=== PATIENT | male | born 1960 | race Caucasian/White ===

== ENCOUNTER → 2016-12-03 | Outpatient (CLI) | payer BC ==
--- NOTE | 2016-12-03 16:51 | MR ---
EXAMINATION TYPE: MR shoulder RT wo con DATE OF EXAM: 12/03/2016 3:14 PM COMPARISON: Outside right shoulder x-ray November 19, 2016. HISTORY: Pain Right shoulder, Limited ROM for 1 - 2 years TECHNIQUE: Multiplanar, multisequence imaging of the right shoulder is performed without contrast. FINDINGS: Rotator Cuff: The supraspinatus and infraspinatus tendons are both intact to humeral head attachment. There is small focal tear involving the anterior fibers of supraspinatus tendon at articular surface measuring 5 mm transversely on paracoronal image 10. Some increased signal in distal fibers is prese nt of supraspinatus and infraspinatus tendons. No full-thickness retracted tears are identified. Rota tor cuff muscle bulk is preserved. Increased signal in subscapularis tendon is present. Acromioclavicular Joint: Widening of acromioclavicular joint is present. No significant spurring is s een. Glenohumeral Joint: There is moderate glenohumeral joint effusion. There is joint space loss with pro minent spur inferior medial humeral head. Labrum: The superior labrum shows some increased signal with retraction from glenoid seen [facility] [place] image 11, degenerative tear is suspected. Biceps Tendon: The long head of biceps is in normal location within bicipital groove. Marked surround ing fluid signal is seen are prominent than expected for joint effusion. Bone marrow signal: There is reactive cystic change involving inferior medial glenoid with well-defin ed ossific fragmentation inferiorly. There is additional subchondral cystic change in the superior gl enoid on paracoronal image 10 anteriorly. Other: No additional significant abnormality is appreciated. IMPRESSION: 1. Moderate to severe glenohumeral joint arthropathy as detailed above. 2. Tendinosis distal supraspinatus and infraspinatus tendons, focal articular surface partial tear of supraspinatus tendon is also seen. 3. Probable bicipital tenosynovitis. 4. Degenerative tear labrum felt present.
== END | disposition home or self-care (01) ==
LOC: RADMRIMAIN 14:39
PROVIDERS: ATTEND Orthopaedic Surgery
DX: M12.811 Other specific arthropathies, not elsewhere classified, right shoulder (principal); S46.011A Strain of muscle(s) and tendon(s) of the rotator cuff of right shoulder, initial encounter; M75.81 Other shoulder lesions, right shoulder; S43.401A Unspecified sprain of right shoulder joint, initial encounter

== ENCOUNTER → 2017-03-31 | Outpatient (CLI) | payer BC ==
[2017-03-31 15:03] LABS: EKG EKG PERFORMED
[2017-03-31 15:20] LABS: Basophils % (A) 0 %; CH 32.1; CHCM 35.9; Eosinophils # (A) 0.1 k/uL (0-0.7); Eosinophils % (A) 3 %; HCT 45.9 % (39.0-53.0); HDW 2.71; HGB 16.2 gm/dL (13.0-17.5); Luc # (Auto) 0.14; Luc % (Auto) 3; Lymphocytes # (A) 1.5 k/uL (1.0-4.8); Lymphocytes % (A) 31 %; MCH 31.7 pg (25.0-35.0); MCHC 35.3 g/dL (31.0-37.0); MCV 89.9 fL (80.0-100.0); Monocytes # (A) 0.4 k/uL (0-1.0); Monocytes % (A) 9 %; Neutrophils # (A) 2.5 k/uL (1.3-7.7); Neutrophils % (A) 53 %; RBC 5.11 m/uL (4.30-5.90); RDW 14.1 % (11.5-15.5); WBC 4.7 k/uL (3.8-10.6); WBC (Perox) 4.54
[2017-03-31 15:37] LABS: Anion Gap 9 mmol/L; Carbon Dioxide 33 mmol/L (22-30); Chloride 99 mmol/L (98-107); Potassium 3.6 mmol/L (3.5-5.1); Sodium 141 mmol/L (137-145)
== END | disposition home or self-care (01) ==
LOC: LABPAT 14:35
PROVIDERS: ATTEND Orthopaedic Surgery
DX: Z01.810 Encounter for preprocedural cardiovascular examination (principal); Z01.812 Encounter for preprocedural laboratory examination; M75.41 Impingement syndrome of right shoulder
CPT/HCPCS: 80051; 85025; 93005

== ENCOUNTER → 2017-04-09 | Day surgery (SDC) | payer BC ==
[2017-04-08 11:17] VITALS: BMI 31.4
--- NOTE | 2017-04-08 13:57 | HP ---
HISTORY AND PHYSICAL SURGERY: 04/09/2017 Uzair Eisenberg is a 56-year-old patient seen with progressive right shoulder pain. After having treatment options discussed, he elected to proceed with right shoulder arthroscopy. Consent was obtained. PAST MEDICAL HISTORY: His past medical history is hypertension, hyperlipidemia. PAST SURGICAL HISTORY: Knee arthroscopy, spine surgery. DAILY MEDICATIONS: 1. Hydrochlorothiazide. 2. Pravastatin. ALLERGIES: None reported. SOCIAL HISTORY: Patient denies tobacco use. PHYSICAL EVALUATION OF THE RIGHT SHOULDER: Flexion is 130 degrees, abduction 120 degrees, external rotation is 30 degrees with some pain and weakness. There is tenderness along the anterolateral acromion rotator cuff insertion site. Impingement sign positive at 90 degrees. Distal neurovascular exam is intact. RADIOGRAPHS RIGHT SHOULDER: Radiographs right shoulder reveal a type 2 anterior acromion. An MRI of the right shoulder revealed a partial rotator cuff tear, biceps tenosynovitis and some osteoarthritic changes. IMPRESSION: Right shoulder impingement with partial rotator cuff tear. PLAN: Right shoulder arthroscopy with subacromial decompression, possible rotator cuff repair and debridement. MMODL / IJN: [id number] /
[~2017-04-09] MED LIST: DEXAMETHASONE SOD PHOS (MDV) 100 MG/10 ML VIAL IV ONE; GLYCOPYRROLATE 0.2 MG/ML 2 ML VIAL ONE; HYDROmorphone 1 MG/ML 1 ML SYRINGE IVP PRN; LACTATED RINGERS 1,000 ML IV SCH; LIDOCAINE 1% 20 ML VIAL (10MG/ML) FOR IV START INTRADERMA ONE; LIDOCAINE 1% INJ 10MG/ML (20 ML MDV) ONE; LIDOCAINE 2%-EPI 1:100,000 20 ML VIAL ONE; MIDAZOLAM 2 MG/2 ML VIAL IV ONE; MIDAZOLAM 2 MG/2 ML VIAL ONE; NEOSTIGMINE 1 MG/ML 10 ML VIAL ONE; ONDANSETRON 4 MG/2 ML VIAL IVP ONE; PROPOFOL 10 MG/ML 20 ML VIAL IV ONE; ROCURONIUM BROMIDE 10 MG/ML 10 ML VIAL IV ONE; ROPIVACAINE 5 MG/ML 30 ML VIAL ONE; SUCCINYLCHOLINE CHLORIDE VIAL 200 MG/10 ML VIAL IV ONE; ceFAZolin 2 GM in SODIUM CHLORIDE 0.9% 100 ML IVPB ONE; fentaNYL (PF) 50 MCG/ML 2 ML AMP IV PRN
[2017-04-09 07:43] LABS: Glucose,Whole Blood 116 mg/dL (75-99)
[2017-04-09 10:08] VITALS: TEMP 97.2
--- NOTE | 2017-04-09 10:12 | P.OP ---
Date of Procedure: 04/09/17 Preoperative Diagnosis: Right shoulder impingement Postoperative Diagnosis: 1. Right shoulder rotator cuff tear 2. 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 Right shoulder grade 3/4 chondromalacia glenoid 4. Right shoulder impingement 5. Right shoulder partial long head biceps tendon tear 6. Right shoulder superficial anterior/superior labral tear Procedure(s) Performed: 1. Right shoulder arthroscopic rotator cuff repair 2. Right shoulder arthroscopic subacromial decompression 3. Right shoulder arthroscopic chondroplasty humeral head 4. Right shoulder arthroscopic biceps tenotomy 5. Right shoulder arthroscopic debridement anterior/superior labral tear Implants: 1- peek anchor Anesthesia: GETA, regional (Shoulder block) Surgeon: Jake Montoya Pet Counselor #1: Partha Alicea Estimated Blood Loss (ml): 10 Pathology: none sent Condition: stable Disposition: PACU Indications for Procedure: 56-year-old patient seen with progressive right shoulder pain. After treatment options were discussed, he elected to proceed with arthroscopy. Operative Findings: See description of procedure Description of Procedure: Patient underwent a shoulder block by department of anesthesia. The patient was then taken to the operative suite. The patient underwent a general anesthetic by the department of anesthesia. The patient was placed into a lateral position and secured. There was appropriate padding of the bony prominence. Right shoulder was then prepped and draped in normal sterile orthopedic fashion. We placed the extremity in 10 pounds of longitudinal traction. A posterior incision was now made for a posterior working portal site. The trocar and cannula were inserted into the glenohumeral joint. Arthroscopy was initiated. Spinal needle was now inserted anteriorly, to ascertain the anterior working portal site. An incision was now made in that area, a trocar was inserted followed by a probe. There was an area of grade 4 chondromalacia involving the anterior aspect of the glenoid. There were vast areas of grade 3 and 4 chondromalacia involving the glenoid. There was no osteochondral tearing present. There was grade 2/3 chondromalacia of the humeral head present with some osteochondral tears. This involved the central portion. There was superficial tearing of both the anterior superior labrum. There was partial tearing long head biceps tendon. I could visualize the rotator cuff tear through the glenohumeral joint involving the distal supraspinatus. At this point I performed an arthroscopic biceps tenotomy. I performed a chondroplasty of the humeral head getting down to stable osteochondral tissue. I debrided the superficial labral tears down to stable tissue. The residual osteochondral surface was probed and found to be stable at the humeral head again noting grade 2/3 chondromalacia. I again noted grade 3/4 chondral malacia the glenoid but stable osteochondral surface present. At this point instruments removed from glenohumeral joint. Utilizing the posterior working portal site, the trocar and cannula were inserted into the subacromial space. Arthroscopy initiated. I made an incision 2 fingerbreadths lateral to the acromion. I introduced my trocar followed by my ArthroCare ablator. I now began ablating thick subacromial bursal tissue, which exposed the undersurface of the anterior acromion. This was diminished subacromial space. There was a very prominent anterior acromion. A motorized bur was introduced and a subacromial decompression was performed. I also excised some osteophytes off the inferior aspect of the distal clavicle. The AC joint was visualized and noted only mildly arthritic. I did not think enough toward a Ken procedure. I turned my attention to the rotator cuff tendon. I visualized the distal supraspinatus tendon tear. Measured about 1 cm. I debrided the margins down to stable tissue. It was now about 1.25 cm. It was freely mobile over the footprint. I abraded the footprint with a motorized bur. I repaired the tendon with 2 everted mattress sutures and one anchor compressing the tendon along the footprint very nicely. Residual suture limbs were clipped. The repair was probed and found to be stable. I injected 1 mL Allogen intra-articular. Instruments now removed from the portal sites. All portal sites were approximated with nylon suture. Sterile dressings were applied followed by a shoulder immobilizer. Porter HUNTER assisted with the procedure. The patient was awakened, transferred to a bed, and taken to recovery in stable condition.
[2017-04-09 10:17] VITALS: RESP 16
[2017-04-09 11:32] VITALS: BP 135/87; PULSE 60
== END | disposition home or self-care (01) ==
LOC: OR 06:45
PROVIDERS: ATTEND Orthopaedic Surgery
DX: M75.101 Unspecified rotator cuff tear or rupture of right shoulder, not specified as traumatic (principal); M94.211 Chondromalacia, right shoulder; M25.811 Other specified joint disorders, right shoulder; S46.111A Strain of muscle, fascia and tendon of long head of biceps, right arm, initial encounter; S43.431A Superior glenoid labrum lesion of right shoulder, initial encounter; X58.XXXA Exposure to other specified factors, initial encounter; M25.711 Osteophyte, right shoulder; M19.011 Primary osteoarthritis, right shoulder; I10 Essential (primary) hypertension; E78.5 Hyperlipidemia, unspecified; Z79.899 Other long term (current) drug therapy
CPT/HCPCS: 64415; 29826; 29827; C1713; C1765; J2250; J0330; J2710; J0690; J2405; J2001; J1100; J2795; J2704

== ENCOUNTER → 2019-08-26 | Outpatient (CLI) | payer BC ==
--- NOTE | 2019-08-26 14:53 | US ---
EXAMINATION TYPE: US scrotum with doppler. Grayscale and color Doppler Duplex imaging performed of t he scrotum. DATE OF EXAM: 08/26/2019 COMPARISON: NONE CLINICAL HISTORY: N50.89 Right Testicular Mass. Pt states Dr felt right testicle lump, pt has no comp laints EXAM MEASUREMENTS: TESTICLES: Right Testicle: 4.5 x 1.9 x 3.0 cm Left Testicle: 3.3 x 2.0 x 2.5 cm EPIDIDYMIS HEAD: Right Epididymis: 1.2 cm Left Epididymis: 1.1 cm Doppler performed to assess for testicular vascularity; good bilateral color flow and waveforms are s een. There is no evidence of testicular torsion. Presence of hydroceles: Yes, small hydros bilaterally Presence of varicoceles: No Small calcifications, right side, incidental and typically benign. IMPRESSION: Small bilateral hydroceles. No testicular mass seen.
== END | disposition home or self-care (01) ==
LOC: RADUSWWP 13:56
PROVIDERS: ATTEND Urology
DX: N43.3 Hydrocele, unspecified (principal)
CPT/HCPCS: 76870; 93975

== ENCOUNTER → 2019-12-06 | Outpatient (CLI) | payer BC | END | disposition home or self-care (01) | LOC: LABWHC1 08:17 | PROVIDERS: ATTEND Surgery | DX: U07.1 COVID-19 (principal) | CPT/HCPCS: 87635 ==

== ENCOUNTER 2019-12-08 07:17 | Day surgery (SDC) | payer BC ==
[2019-12-06 15:47] VITALS: BMI 30.5
[~2019-12-08 07:17] MED LIST changes: -DEXAMETHASONE SOD PHOS (MDV) 100 MG/10 ML VIAL IV ONE; -GLYCOPYRROLATE 0.2 MG/ML 2 ML VIAL ONE; +HEPARIN SODIUM,PORCINE 5,000 UNIT/ML 1 ML VIAL SQ ONE; +HYDROmorphone 0.5 MG/0.5 ML SYRINGE IVP PRN; -HYDROmorphone 1 MG/ML 1 ML SYRINGE IVP PRN; -LIDOCAINE 1% 20 ML VIAL (10MG/ML) FOR IV START INTRADERMA ONE; -LIDOCAINE 1% INJ 10MG/ML (20 ML MDV) ONE; -LIDOCAINE 2%-EPI 1:100,000 20 ML VIAL ONE; -MIDAZOLAM 2 MG/2 ML VIAL IV ONE; -MIDAZOLAM 2 MG/2 ML VIAL ONE; -NEOSTIGMINE 1 MG/ML 10 ML VIAL ONE; -ONDANSETRON 4 MG/2 ML VIAL IVP ONE; -PROPOFOL 10 MG/ML 20 ML VIAL IV ONE; -ROCURONIUM BROMIDE 10 MG/ML 10 ML VIAL IV ONE; -ROPIVACAINE 5 MG/ML 30 ML VIAL ONE; -SUCCINYLCHOLINE CHLORIDE VIAL 200 MG/10 ML VIAL IV ONE; -ceFAZolin 2 GM in SODIUM CHLORIDE 0.9% 100 ML IVPB ONE; -fentaNYL (PF) 50 MCG/ML 2 ML AMP IV PRN
[2019-12-08] MEDS ORDERED: ONDANSETRON 4 MG/2 ML VIAL IVP ONE (07:30)
[2019-12-08] MEDS ORDERED: LIDOCAINE 1% (10MG/ML) FOR IV START INTRADERMA ONE (07:30)
[2019-12-08] MEDS ORDERED: MIDAZOLAM 2 MG/2 ML VIAL IV ONE ×2 (08:09)
[2019-12-08] MEDS ORDERED: fentaNYL (PF) 50 MCG/ML 2 ML AMP IV ONE ×2 (08:09)
[2019-12-08 08:10] LABS: Glucose,Whole Blood 126 mg/dL (75-99)
[2019-12-08 08:12] LABS: Basophils % (A) 1 %; Eosinophils # (A) 0.2 k/uL (0-0.7); Eosinophils % (A) 6 %; HCT 47.8 % (39.0-53.0); HGB 15.7 gm/dL (13.0-17.5); Lymphocytes # (A) 0.9 k/uL (1.0-4.8); Lymphocytes % (A) 31 %; MCH 29.8 pg (25.0-35.0); MCHC 32.9 g/dL (31.0-37.0); MCV 90.7 fL (80.0-100.0); Mean Platelet Volume 7.2; Monocytes # (A) 0.3 k/uL (0-1.0); Monocytes % (A) 8 %; Neutrophils # (A) 1.6 k/uL (1.3-7.7); Neutrophils % (A) 52 %; Platelet Count 175 k/uL (150-450); RBC 5.27 m/uL (4.30-5.90); RDW 12.7 % (11.5-15.5); WBC 3.1 k/uL (3.8-10.6)
[2019-12-08] MEDS ORDERED: DEXAMETHASONE SOD PHOSPHATE 10 MG/ML 1 ML VIAL IV ONE (08:25)
--- NOTE | 2019-12-08 08:44 | P.ANPRN ---
Procedure Note - Anesthesia - Nerve Block Performed Bilateral Rectus Abdominis Date of Procedure: 12/08/19 Procedure Start Time: :08 Procedure Stop Time: 08:16 Location of Patient: PreOp Indication: Acute Post-Operative Pain, Requested by Surgeon (Yaneli) Sedation Type: Sedate with meaningful contact maintained Preparation: Sterile Prep Position: Supine Catheter: None Needle Types: Pajunk Needle Gauge: 21 Ultrasound used to visualize needle placement: Yes Ultrasound used to observe medication spread: Yes Injectate: 0.5% Ropivacaine (see comment for volume) (15cc each side) Blood Aspirated: No Pain Paresthesia on Injection Noted: No Resistance on Injection: Normal Image Stored and Saved: Yes Events: Uneventful and Well Tolerated
--- NOTE | 2019-12-08 08:44 | P.GSHP ---
History of Present Illness H&P Date: 12/08/19 Chief Complaint: Umbilical and right inguinal hernia This a 59-year-old male who presents today for laparoscopic robotic Umbilical and right inguinal hernia. Patient has a large umbilical hernia and a reducible right inguinal hernia Past Medical History Past Medical History: Hyperlipidemia, Hypertension Additional Past Medical History / Comment(s): prediabetic- watches diet., hx of ruptured disc & pinched nerve., right inguinal hernia, umbilical hernia. History of Any Multi-Drug Resistant Organisms: None Reported Past Surgical History: Back Surgery, Orthopedic Surgery, Prostate Surgery Additional Past Surgical History / Comment(s): LEFT KNEE ARTHROSCOPIC , LEFT KNEE ARTHROTOMY,prostate bx Past Anesthesia/Blood Transfusion Reactions: No Reported Reaction Past Psychological History: No Psychological Hx Reported Smoking Status: Former smoker Past Alcohol Use History: Occasional Additional Past Alcohol Use History / Comment(s): STARTED SMOKING AT AGE 15 QUIT SMOKING AT AGE 23 SMOKED 1PPD Past Drug Use History: None Reported - Past Family History Father Family Medical History: Cancer Medications and Allergies Home Medications Medication Instructions Recorded Confirmed Type Hydrochlorothiazide 12.5 mg PO DAILY 04/08/17 12/08/19 History Pravastatin Sodium [Pravachol] 10 mg PO HS 04/08/17 12/08/19 History Ascorbic Acid [Vitamin C] 500 mg PO DAILY 10/08/19 12/08/19 History Aspirin [Adult Low Dose Aspirin EC] 81 mg PO DAILY 12/06/19 12/08/19 History Allergies Allergy/AdvReac Type Severity Reaction Status Date / Time No Known Allergies Allergy Verified 12/08/19 07:31 Surgical - Exam Vital Signs Temp Pulse Resp BP Pulse Ox 97.3 F L 66 16 149/91 98 12/08/19 07:59 12/08/19 07:59 12/08/19 07:59 12/08/19 07:59 12/08/19 07:59 - General well developed, well nourished, no distress - Eyes PERRL - ENT normal pinna - Neck no masses - Respiratory normal expansion - Cardiovascular Rhythm: regular - Abdomen Abdomen: soft, non tender Hernia: inguinal (Right), umbilical (Incarcerated) Results - Labs 12/08/19 07:50 Abnormal Lab Results - Last 24 Hours (Table) 12/08/19 12/08/19 Range/Units 07:50 07:57 WBC 3.1 L (3.8-10.6) k/uL Lymphocytes # 0.9 L (1.0-4.8) k/uL POC Glucose (mg/dL) 126 H (75-99) mg/dL Assessment and Plan Assessment: Incarcerated umbilical hernia, right inguinal hernia, we'll perform laparoscopic robotic-assisted repair.
[2019-12-08] MEDS ORDERED: KETOROLAC 30 MG/ML 1 ML VIAL ONE (09:01)
[2019-12-08] MEDS ORDERED: SUCCINYLCHOLINE CHLORIDE VIAL 200 MG/10 ML VIAL IV ONE (09:01)
[2019-12-08] MEDS ORDERED: LIDOCAINE 1% INJ 10MG/ML (20 ML MDV) ONE (09:01)
[2019-12-08] MEDS ORDERED: NEOSTIGMINE 1 MG/ML 10 ML VIAL ONE (09:01)
[2019-12-08] MEDS ORDERED: MIDAZOLAM 2 MG/2 ML VIAL ONE (09:01)
[2019-12-08] MEDS ORDERED: fentaNYL (PF) 50 MCG/ML 2 ML AMP ONE (09:01)
[2019-12-08] MEDS ORDERED: GLYCOPYRROLATE 0.2 MG/ML 2 ML VIAL ONE (09:01)
[2019-12-08] MEDS ORDERED: ROCURONIUM BROMIDE 10 MG/ML 5 ML VIAL IV ONE (09:01)
[2019-12-08] MEDS ORDERED: PROPOFOL 10 MG/ML 20 ML VIAL IV ONE (09:01)
[2019-12-08] MEDS ORDERED: BUPIVACAIN-EPI 0.25%-1:200,000 30 ML VIAL SQ ONE (09:36)
[2019-12-08] MEDS ORDERED: LACTATED RINGERS 1,000 ML IV ONE (10:18)
--- NOTE | 2019-12-08 10:28 | P.OP ---
Date of Procedure: 12/08/19 Preoperative Diagnosis: Incarcerated umbilical hernia Right inguinal hernia Postoperative Diagnosis: Incarcerated umbilical hernia Right inguinal hernia Procedure(s) Performed: Laparoscopic robotic repair of incarcerated umbilical hernia and right inguinal hernia Partial omentectomy Anesthesia: ANGEL Surgeon: Dmitriy Groves Pathology: other (Omentum) Condition: stable Disposition: PACU Description of Procedure: The patient's placed on the operating table in the supine position. The patient received general anesthesia. The patient's abdomen was prepped and draped in usual sterile fashion. The skin was anesthetized 1% local Xylocaine at the incision sites. Using an 11 blade a skin incision was made at the umbilicus. The incarcerated umbilical hernia was dissected in the incarcerated omentum was dissected free and ligated and sent to pathology. The fascia was grasped with a Basehor and then the peritoneal cavity was entered with the Veress needle. Position of the Veress needle was confirmed with a positive drop test. After adequate insufflation a 5 mm trocar was placed into the peritoneal cavity. The Laparoscope was placed the peritoneal cavity. And a robotic 8 mm trocar was placed in the right lateral position and then another 8 mm robotic trochars placed in the left lateral position. The original 5 mm trocar was exchanged for a 12 mm trocar. The patient was placed in reverse Trendelenburg and then the patient was docked to the robot. Next the peritoneum over top of the hernia was incised and then using blunt and sharp dissection and electrocautery the hernia sac was dissected free from the floor of the inguinal canal. The hernia sac was completely reduced into the peritoneal cavity. And then using the Pro binding printer mesh the hernia was repaired. The peritoneum was then sutured with 20V lock suture. The patient was then undocked the robot. The needle was withdrawn from the peritoneal cavity. The umbilical hernia site was closed laparoscopically with 0 Ethibond suture. The skin was closed interrupted 3-0 Monocryl suture. Dermabond dressing was applied. Patient was sent to recovery in stable condition.
[2019-12-08 10:31] VITALS: TEMP 97.6
[2019-12-08 11:42] VITALS: BP 147/84; PULSE 74; RESP 16
== END 2019-12-08 12:17 | disposition home or self-care (01) ==
LOC: OR 07:17
PROVIDERS: ATTEND Surgery
DX: K42.0 Umbilical hernia with obstruction, without gangrene (principal); K40.90 Unilateral inguinal hernia, without obstruction or gangrene, not specified as recurrent; I10 Essential (primary) hypertension; E78.5 Hyperlipidemia, unspecified; Z98.890 Other specified postprocedural states; Z87.891 Personal history of nicotine dependence; Z80.9 Family history of malignant neoplasm, unspecified; Z79.82 Long term (current) use of aspirin; Z79.899 Other long term (current) drug therapy
CPT/HCPCS: 88305; 85025; 88302; 49587; 49650; 64488; C1781; J2250; J0330; J1644; J1100; J2710; J0690; J2405; J2001; J3010; J1885; J2704

== ENCOUNTER → 2020-05-18 | Outpatient (CLI) | payer BC ==
--- NOTE | 2020-05-18 11:36 | XR ---
Left shoulder HISTORY: Injury, pain 2 views of left shoulder Bone mineralization, joint spaces and alignment are maintained. No fracture or dislocation. Some mild hypertrophic change suspected at the acromioclavicular joint. Degenerative disc changes are noted in the thoracic spine. IMPRESSION: Mild arthropathy, shoulder MRI may be of benefit.
== END | disposition home or self-care (01) ==
LOC: RADXRMAIN 09:30
PROVIDERS: ATTEND Nurse Practitioner Family
DX: M12.812 Other specific arthropathies, not elsewhere classified, left shoulder (principal)

== ENCOUNTER → 2020-08-21 | Outpatient (CLI) | payer BC ==
--- NOTE | 2020-08-22 14:29 | MR ---
EXAMINATION TYPE: MR shoulder LT wo con DATE OF EXAM: 08/21/2020 11:49 AM COMPARISON: NONE HISTORY: Left shoulder pain TECHNIQUE: Multiplanar multispin echo imaging of the left shoulder was performed. FINDINGS: Rotator cuff : Full thickness retracted tear involving the supraspinatus tendon with extension into t he infraspinatus tendon. Fluid filled gap of 2.3 cm. No evidence for muscular atrophy at this time. S ubscapularis tendon is intact. Bursa: No bursal effusion or thickening is seen. Musculature: There is no muscular tear, contusion, or atrophy. Acromioclavicular joint : There are mild to moderate degenerative changes of the acromioclavicular ninfa int. There is no anterior or lateral acromial downsloping. Osseous structures : There are no fractures or regions of abnormal bone marrow signal intensity. Long biceps tendon : The biceps tendon is normally situated within the bicipital groove. No complete or partial biceps tendon tear is present. Glenohumeral Joint fluid : Joint effusion noted. Cartilage and Bone : No focal hyaline cartilage defects are noted. No Hill-Sachs, reverse Hill-Sachs, or bony Bankart lesions are seen. Labrum : There are no SLAP or soft tissue Bankart lesions. No paralabral cysts are seen. OTHER FINDINGS : Cystic degenerative change of the glenoid. IMPRESSION: 1. Full thickness retracted tear involving the supraspinatus tendon with extension into the infraspin atus tendon. Fluid filled gap of 2.3 cm.
== END | disposition home or self-care (01) ==
LOC: RADMRIMAIN 10:43
PROVIDERS: ATTEND Orthopaedic Surgery
DX: M25.512 Pain in left shoulder (principal)

== ENCOUNTER → 2020-10-23 | Outpatient (CLI) | payer BC ==
[2020-10-23 09:54] LABS: Basophils % (A) 0 %; Eosinophils # (A) 0.1 k/uL (0-0.7); Eosinophils % (A) 4 %; HCT 46.9 % (39.0-53.0); HGB 16.2 gm/dL (13.0-17.5); Lymphocytes # (A) 0.8 k/uL (1.0-4.8); Lymphocytes % (A) 27 %; MCH 31.4 pg (25.0-35.0); MCHC 34.5 g/dL (31.0-37.0); Mean Platelet Volume 7.5; Monocytes # (A) 0.3 k/uL (0-1.0); Monocytes % (A) 8 %; Neutrophils # (A) 1.8 k/uL (1.3-7.7); Neutrophils % (A) 59 %; Platelet Count 173 k/uL (150-450); RBC 5.15 m/uL (4.30-5.90); WBC 3.1 k/uL (3.8-10.6)
[2020-10-23 09:59] LABS: Potassium 4.5 mmol/L (3.5-5.1)
== END ==
LOC: LABPAT 08:33
PROVIDERS: ATTEND Orthopaedic Surgery
DX: Z01.818 Encounter for other preprocedural examination (principal); I44.0 Atrioventricular block, first degree; R94.31 Abnormal electrocardiogram [ECG] [EKG]; M75.42 Impingement syndrome of left shoulder
CPT/HCPCS: 36415; 80051; 85025; 93005

== ENCOUNTER 2020-10-26 07:41 | Day surgery (SDC) | payer BC ==
[2020-10-20 14:40] VITALS: BMI 31.4
--- NOTE | 2020-10-25 21:29 | HP ---
HISTORY AND PHYSICAL REASON FOR ADMISSION: Surgery 10/26/2020. HISTORY OF PRESENT ILLNESS: Uzair Eisenberg is a 60-year-old gentleman seen with progressive left shoulder pain. We discussed options for treatment. He elected to proceed with arthroscopy. Consent was obtained. PAST MEDICAL HISTORY: Hypertension, hyperlipidemia, cut-[id number] diabetes. PAST SURGICAL HISTORY: Knee surgery, spine surgery. DAILY MEDICATIONS: Aspirin, hydrochlorothiazide, pravastatin, ibuprofen. ALLERGIES: None. SOCIAL HISTORY: Denies tobacco use. PHYSICAL EVALUATION OF THE LEFT SHOULDER: Flexion is 140, abduction is 130, external rotation is 40 with significant weakness. He is tender along the anterior lateral acromion rotator cuff insertion site. Impingement sign is positive at 90 degrees. Drop-arm sign is positive. Distal neurovascular exam is intact. RADIOGRAPHS: Radiographs of the left shoulder revealed a type 2 acromion, acromioclavicular joint osteoarthritis and cystic changes of the tuberosity. An MRI of the left shoulder revealed a retracted rotator cuff tendon tear as well as acromioclavicular joint osteoarthritis. IMPRESSION: 1. Left shoulder impingement with rotator cuff tear. 2. Left shoulder acromioclavicular joint osteoarthritis. 3. Hypertension. 4. Hyperlipidemia. PLAN: Left shoulder arthroscopy with decompression, arthroscopic rotator cuff repair, Ken procedure and debridement. Surgery is 10/26/2020. MMODL / IJN: [id number] /
[~2020-10-26 07:41] MED LIST changes: +DEXAMETHASONE SOD PHOSPHATE 4 MG/ML 1 ML VIAL IV ONE; -HEPARIN SODIUM,PORCINE 5,000 UNIT/ML 1 ML VIAL SQ ONE; +MIDAZOLAM 2 MG/2 ML VIAL IV PRN; +ONDANSETRON 4 MG/2 ML VIAL IVP ONE
[2020-10-26] MEDS ORDERED: MIDAZOLAM 2 MG/2 ML VIAL IVP ONE (08:51)
[2020-10-26] MEDS ORDERED: PROPOFOL 10 MG/ML 20 ML VIAL IV ONE (09:10)
[2020-10-26] MEDS ORDERED: ROPIVACAINE 5 MG/ML 30 ML VIAL ONE (09:10)
[2020-10-26] MEDS ORDERED: DEXAMETHASONE SOD PHOSPHATE 4 MG/ML 1 ML VIAL ONE (09:10)
[2020-10-26] MEDS ORDERED: SUCCINYLCHOLINE CHLORIDE 100 MG/5 ML SYR IV ONE (09:10)
[2020-10-26] MEDS ORDERED: LIDOCAINE 1% INJ 10MG/ML (20 ML MDV) ONE (09:10)
[2020-10-26] MEDS ORDERED: fentaNYL (PF) 50 MCG/ML 2 ML AMP ONE (09:10)
[2020-10-26] MEDS ORDERED: hydrALAZINE HCL 20 MG/ML 1 ML VIAL ONE (09:10)
[2020-10-26] MEDS ORDERED: MIDAZOLAM 2 MG/2 ML VIAL ONE (09:10)
[2020-10-26] MEDS ORDERED: LACTATED RINGERS 1,000 ML IV ONE (11:05)
--- NOTE | 2020-10-26 11:26 | P.OP ---
Date of Procedure: 10/26/20 Preoperative Diagnosis: Left shoulder impingement Postoperative Diagnosis: 1. Left shoulder arthroscopic rotator cuff repair 2. Left shoulder arthroscopic subacromial decompression 3. Left shoulder arthroscopic Ken procedure Procedure(s) Performed: 1. Left shoulder arthroscopic rotator cuff repair 2. Left shoulder arthroscopic subacromial decompression 3. Left shoulder arthroscopic Ken procedure Implants: 4Arthrex 4.75 swivel lock anchors Anesthesia: GETA, regional (Interscalene block) Surgeon: Jake Montoya Grooming Assistant #1: Ayaz Echols Estimated Blood Loss (ml): 11 Pathology: none sent Condition: stable Disposition: PACU Indications for Procedure: 60-year-old patient seen with progressive left shoulder pain. After treatment options were discussed, he elected to proceed with arthroscopy. Operative Findings: See description of procedure Description of Procedure: Patient underwent an interscalene block by department of anesthesia. The patient was then taken to the operative suite. The patient underwent a general anesthetic by the department of anesthesia. The patient was placed into a lateral position and secured. There was appropriate padding of the bony prominence. Left shoulder was then prepped and draped in normal sterile orthopedic fashion. We placed the extremity in 10 pounds of longitudinal traction. A posterior incision was now made for a posterior working portal site. The trocar and cannula were inserted into the glenohumeral joint. Arthroscopy was initiated. Spinal needle was now inserted anteriorly, to ascertain the anterior working portal site. An incision was now made in that area, a trocar was inserted followed by a probe. There was some grade 1 chondral malacia changes of the humeral head and grade 1/2 chondromalacia changes of the glenoid with no osteochondral tears present. There was some mild fraying of the labrum but no tear. Biceps tendon was absent. There was a massive rotator cuff tear visualized from the glenohumeral joint. I debrided that area labral fraying. I again probe the labrum and it was found to be stable. Utilizing the posterior working portal site, the trocar and cannula were inserted into the subacromial space. Arthroscopy initiated. I made an incision 2 fingerbreadths lateral to the acromion. I introduced my trocar followed by my ArthroCare ablator. I now began ablating thick subacromial bursal tissue, which exposed the undersurface of the anterior acromion. There was diminished subacromial space. There was a very prominent anterior acromion. A motorized bur was introduced and a subacromial decompression was performed. I also excised some osteophytes off the inferior aspect of the distal clavicle. The AC joint was visualized and noted to be fairly arthritic. The motorized bur was introduced in the anterior portal site and a Ken procedure was performed without difficulty, decompressing the AC joint nicely. I turned my attention to the rotator cuff. There was a 3 cm rotator cuff tear. It was freely mobile over the footprint. I debrided the margins getting down to stable tendon tissue. I introduced my motorized bur and abraded the footprint area, getting some petechial bleeding. I now made an accessory portal site off the lateral aspect of the acromion. I punched 2 holes medial for medial row fixation with the assistance of Ayaz HUNTER carefully tapping the punch with a mallet as I held the punch and the camera. I now introduced both anchors into the pre-punched holes and Ayaz HUNTER tapped them with the mallet as I held anchors and the camera. Ayaz HUNTER now screwed the anchors in place a while I held the anchor guide and camera. All 8 limbs of suture were now passed through good bites of rotator cuff tendon. I now punched 2 holes for lateral row fixation again I held the punch and camera while Ayaz HUNTER used a mallet to tap in the punch. We now passed sutures through both anchors and individually I introduced the anchors into the pre-punch holes I held the anchor guide in position with one hand holding the camera with the other hand while Ayaz HUNTER tensioned the sutures and screwed in the anchors one at a time. All residual suture limbs were now clipped. We had good compression of the tendon along the entire footprint. I injected 1 mL Renyte intra-articular. Instruments now removed from the portal sites. All portal sites were approximated with nylon suture. Sterile dressings were applied followed by a shoulder immobilizer. Ayaz HUNTER assisted in this complex case. The patient was awakened, transferred to a bed, and taken to recovery in stable condition.
[2020-10-26 11:34] VITALS: TEMP 96.9
[2020-10-26 11:35] VITALS: RESP 16
[2020-10-26 12:49] VITALS: BP 150/90; PULSE 84
--- NOTE | 2020-10-26 20:34 | P.ANPRN ---
Procedure Note - Anesthesia - Nerve Block Performed Left Interscalene Single Time Out Performed: Yes Date of Procedure: 10/26/20 Procedure Start Time: 08:50 Procedure Stop Time: 08:55 Location of Patient: PreOp Indication: Acute Post-Operative Pain, Requested by Surgeon Sedation Type: Sedate with meaningful contact maintained Preparation: Sterile Prep Position: Supine Needle Types: Pajunk Needle Gauge: 21 Ultrasound used to visualize needle placement: Yes Ultrasound used to observe medication spread: Yes Blood Aspirated: No Pain Paresthesia on Injection Noted: No Resistance on Injection: Normal Image Stored and Saved: Yes Events: Uneventful and Well Tolerated (ropi .5% 20cc plus dexamethasone 4mg)
--- NOTE | 2020-10-30 11:04 | CDI ---
Date 10.30.20 CDS/Fuel Manager Name: Alem De Paz Phone: If any questions, call Cassidy Walsh Scientific Publications Editor at Patient Name: Uzair Eisenberg Discharge Date: 10.26.2020 ATTENTION: The [facility] Coding Staff appreciate your assistance in clarifying documentation. Please respond to the clarification below the line at the bottom and electronically sign. The [facility] Coding staff will review the response and follow-up if needed. Please note: Queries are made part of the Legal Health Record. If you have any questions, please contact the Scientific Publications Editor. Dear Dr. Montoya In order to code to the greatest specificity and for the greatest reimbursement I need the following information: You have documented in your OP note under preop dx the procedures performed, please document the post op dxs. Thank you for your kind consideration. Postoperative diagnosis 1. Left shoulder rotator cuff tear 2. Left shoulder impingement 3. Left shoulder acromioclavicular joint osteoarthritis MTDD
== END 2020-10-26 13:09 | disposition home or self-care (01) ==
LOC: OR 07:41
PROVIDERS: ATTEND Orthopaedic Surgery
DX: M75.102 Unspecified rotator cuff tear or rupture of left shoulder, not specified as traumatic (principal); M25.812 Other specified joint disorders, left shoulder; M19.012 Primary osteoarthritis, left shoulder; M94.212 Chondromalacia, left shoulder; M25.712 Osteophyte, left shoulder; I10 Essential (primary) hypertension; E78.5 Hyperlipidemia, unspecified; E11.9 Type 2 diabetes mellitus without complications; Z98.890 Other specified postprocedural states; Z79.82 Long term (current) use of aspirin; Z79.899 Other long term (current) drug therapy; Z79.1 Long term (current) use of non-steroidal anti-inflammatories (NSAID); Z79.891 Long term (current) use of opiate analgesic
CPT/HCPCS: 29827; 29826; 29824; 64415; 76942; C1713 ×2; J2250; J0360; J1100; J0690; J2405; J2001; J3010; J2795; J0330; J2704

== ENCOUNTER → 2022-06-08 | Outpatient (CLI) | payer BC ==
[2022-06-08 16:53] LABS: Basophils # (A) 0.01 X 10*3/uL (0.00-0.10); Basophils % (A) 0.3 %; Eosinophils # (A) 0.08 X 10*3/uL (0.04-0.35); Eosinophils % (A) 2.4 %; HCT 46.3 % (39.6-50.0); HGB 15.4 g/dL (13.0-17.0); Immature Grans, Automated 0 %; Lymphocytes # (A) 0.92 X 10*3/uL (0.90-5.00); Lymphocytes % (A) 27.1 %; MCH 30.4 pg (27.0-32.0); MCHC 33.3 g/dL (32.0-37.0); MCV 91.5 fL (80.0-97.0); Mean Platelet Volume 10.6 fL (9.5-12.2); Monocytes % (A) 8.8 %; NRBC Per 100 WBC 0 /100 WBCS (0.0-0.0); Neutrophils # (A) 2.09 X 10*3/uL (1.80-7.70); Neutrophils % (A) 61.4 %; Platelet Count 240 X 10*3/uL (140-440); RBC 5.06 X 10*6/uL (4.40-5.60); RDW 12.2 % (11.5-14.5)
[2022-06-08 17:05] LABS: African American GFR (CKD) 110.2 (60.0-200.0); Anion Gap 12.7 mmol/L (10.00-18.00); Blood Urea Nitrogen 15.2 mg/dL (9.0-27.0); Calcium 9.6 mg/dL (8.7-10.3); Carbon Dioxide 27.6 mmol/L (20.0-27.5); Non-African American GFR(CKD) 95.1 (60.0-200.0); Potassium 3.8 mmol/L (3.5-5.5)
== END | disposition home or self-care (01) ==
LOC: LABPAT 08:47
PROVIDERS: ATTEND Orthopaedic Surgery Hand Surgery
DX: Z01.812 Encounter for preprocedural laboratory examination (principal); M13.841 Other specified arthritis, right hand
CPT/HCPCS: 80048; 85025; 93005

== ENCOUNTER 2022-06-19 08:40 | Day surgery (SDC) | payer BC ==
[2022-06-12 15:10] VITALS: BMI 31.4
--- NOTE | 2022-06-18 13:33 | P.HPOR ---
History of Present Illness H&P Date: 06/18/22 Chief Complaint: Right index finger arthritis, Right index finger soft tissue mass Subjective: This is a 61 year old male that presents today for initial evaluation regarding a several year history of a progressively enlarging mass present on the dorsal aspect of his index finger. He has noticed difficulty with trying to hold a mug/cup due to the finger tip getting stuck in small places and he finds himself often hitting it on objects due to it's prominence. He states it is rarely painful but is becoming more of an annoyance on a daily basis. Physical Examination: RUE: AIN/PIN/Radial/Ulnar/Median motor intact. Radial/Ulnar/Median SILT. 2+/4 Radial/Ulnar pulses palpated. 5/5 APB, 5/5 FDI. Negative Finkelsteins, negative CMC grind, negative Durkan's compression. Prominent 1cm raise mass over DIP joint, cyst like in appearance. NTTP over DIP joint. FDP/terminal extensor tendon intact. Imaging: X-Rays of the right index finger demonstrate large dorsal osteophyte present at DIP joint, mild to moderate DIP joint arthritis. Several loose ossific bodies appear to be in DIP joint Impression: 1.) Right index finger osteoarthritis 2.) Right index finger mucous cyst Plan: Diagnosis and treatment options were discussed with the patient. He would like to pursue surgical intervention due to index finger becoming increasingly annoying when doing daily tasks. He is schedule for a right index finger DIP joint arthrotomy with dorsal osteophyte excision and mucous cyst excision. Risks and benefits of surgery including bleeding, infection, damage to surrounding tissue, need for further surgery, residual numbness were discussed and the patient wished to go forward with surgery. Labs/EKG are ordered. The patient is agreeable with this plan. Follow up: 10 days post op -Dudley Haley DO Orthopedic Hand/Upper Extremity Surgeon Past Medical History Past Medical History: Hyperlipidemia, Hypertension, Osteoarthritis (OA) Additional Past Medical History / Comment(s): prediabetic History of Any Multi-Drug Resistant Organisms: None Reported Past Surgical History: Back Surgery, Hernia Repair, Orthopedic Surgery Additional Past Surgical History / Comment(s): LEFT KNEE ARTHROSCOPIC , LEFT KNEE ARTHROTOMY, prostate sx, RT SHOULDER SX, COLONOSCOPY, left shoulder arthroscopic Past Anesthesia/Blood Transfusion Reactions: No Reported Reaction Smoking Status: Former smoker - Past Family History Father Family Medical History: Cancer Medications and Allergies Home Medications Medication Instructions Recorded Confirmed Type Pravastatin Sodium [Pravachol] 10 mg PO HS 04/08/17 06/12/22 History Ascorbic Acid [Vitamin C] 500 mg PO DAILY 10/08/19 06/12/22 History Losartan-Hctz 50-12.5 mg [Hyzaar 1 tab PO DAILY 06/12/22 06/12/22 History 50-12.5] Allergies Allergy/AdvReac Type Severity Reaction Status Date / Time dog dander Allergy WATERY EYES Verified 06/12/22 14:38 Physical Examination Osteopathic Statement: *. No significant issues noted on an osteopathic structural exam other than those noted in the History and Physical/Consult.
[2022-06-19] MEDS ORDERED: LIDOCAINE 1% (10MG/ML) FOR IV START INTRADERMA PRN (09:24)
[2022-06-19] MEDS ORDERED: ONDANSETRON 4 MG/2 ML VIAL IVP ONE (09:24)
[2022-06-19] MEDS ORDERED: DEXAMETHASONE SOD PHOSPHATE 4 MG/ML 1 ML VIAL IV ONE (09:24)
[2022-06-19] MEDS ORDERED: LACTATED RINGERS 1,000 ML IV SCH (09:24)
[2022-06-19] MEDS ORDERED: HYDROmorphone 0.5 MG/0.5 ML SYRINGE IVP PRN (09:24)
[2022-06-19 09:28] VITALS: TEMP 96.9
[2022-06-19] MEDS ORDERED: LACTATED RINGERS 1,000 ML IV ONE (09:28)
[2022-06-19] MEDS ORDERED: fentaNYL (PF) 50 MCG/ML 2 ML AMP ONE (09:35)
[2022-06-19] MEDS ORDERED: PROPOFOL 10 MG/ML 20 ML VIAL IV ONE (09:35)
[2022-06-19] MEDS ORDERED: KETAMINE 10 MG/ML 20 ML VIAL ONE (09:35)
[2022-06-19] MEDS ORDERED: MIDAZOLAM 2 MG/2 ML VIAL ONE (09:35)
[2022-06-19] MEDS ORDERED: LIDOCAINE 1% INJ 10MG/ML (10 ML MDV) SQ ONE (09:44)
[2022-06-19] MEDS ORDERED: BUPIVACAINE (PF) 0.5% 30 ML VIAL INTRAARTIC ONE (09:44)
[2022-06-19] MEDS ORDERED: BACITRACIN ZINC 500 UNIT/GM OINT 28.4 GM TUBE TOPICAL ONE (10:19)
[2022-06-19 10:34] VITALS: RESP 16
--- NOTE | 2022-06-19 10:38 | P.OP ---
Date of Procedure: 06/19/22 Preoperative Diagnosis: 1.) Right index finger osteoarthritis 2.) Right index finger mucous cyst Postoperative Diagnosis: 1.) Right index finger osteoarthritis 2.) Right index finger mucous cyst Procedure(s) Performed: 1.) Right index finger DIP joint arthrotomy with dorsal osteophyte excision 2.) Right index finger mucous cyst Anesthesia: MAC Surgeon: Dudley Haley Roller Painter #1: Ayaz Echols Estimated Blood Loss (ml): 0 Pathology: none sent Condition: stable Disposition: PACU Description of Procedure: This is a 61year old male with right index finger DIP joint arthritis and a painful mucous cyst that has failed conservative treatment and presents today for a right index finger DIP joint arthrotomy, mucous cyst excision and dorsal osteophyte excision. Risks and benefits of surgery were discussed with the patient including bleeding, damage to surrounding tissue, infection, need for further surgery as well as risks of anesthesia including pulmonary embolism and even and the patient wished to proceed with surgical intervention. The patient was seen in the pre-operative area by myself. Consent and H&P were completed and updated. The correct extremity was marked in the pre-operative area by myself and all other questions were answered. Operative Narrative: The patient was brought to the operating room by the department of anesthesia. They remained on the portable stretcher and a rolling hand table was brought to the side of the operative extremity. Pre-operative time out was performed indicating the correct patient, procedure and laterality. All in the room agreed. Pre-operative antibiotics were given prior to skin incision. The patient was then drifted off to sleep by the department of anesthesia. Digital block was performed with 7cc's of 0.5% Lidocaine and 1% lidocaine in a 50:50 mixture. A nonsterile tourniquet was then applied to the operative extremity and the right upper extremity was then prepped and draped in normal sterile fashion. The operative extremity was then exsanguinated with an esmarch bandage and the tourniquet was inflated to 250mmHg. 15 blade scalpel was utilized to make a H type incision over the DIP joint of the finger. Sharp dissection was taken down though subcutaneous tissues. Exte nsor tendon was identified and preserved. 15 blade scalpel was then used to perform arthrotomy of the DIP joint on both the radial and ulnar boarders of the terminal extensor tendon. Origin of the mucuous cyst was identified coming from the DIP joint, cyst was decompressed and excised. Rongeur was utilized to removed radial and ulnar dorsal osteophytes which were very prominent on the radial side. Terminal extensor tendon was intact at the end of the procedure. The wound was then closed with 4-0 nylon suture and a soft dressing was placed consisting of adaptic, 4x4s and loosely applied coban. Tourniquet was let down and the hand had immediate perfusion. The patient was then woken by the department of anesthesia and transferred to PACU in stable condition. Ayaz HUNTER was present for the case to assist in protection of neurovascular structures and other major portions of the case described above. Dudley Haley D.O. Orthopedic Hand/Upper Extremity Surgeon
[2022-06-19 10:45] VITALS: BP 137/76; PULSE 64
== END 2022-06-19 11:06 | disposition home or self-care (01) ==
LOC: OR 08:40
PROVIDERS: ATTEND Orthopaedic Surgery Hand Surgery
DX: M19.041 Primary osteoarthritis, right hand (principal); M85.641 Other cyst of bone, right hand; I10 Essential (primary) hypertension; E78.5 Hyperlipidemia, unspecified; Z87.891 Personal history of nicotine dependence; Z80.9 Family history of malignant neoplasm, unspecified; Z79.899 Other long term (current) drug therapy
CPT/HCPCS: 26160; 86900; 86901; 86850; J2250; J1100; J0690; J2405; J3010; J2001; J2704

== ENCOUNTER 2024-03-25 07:30 | Day surgery (SDC) | payer BC, MEDICARE ==
[2024-03-25 08:13] VITALS: TEMP 97.2
[2024-03-25] MEDS: IV FLUID CONTINUATION 1,000 ML IV ONE (08:18)
[2024-03-25] MEDS: LACTATED RINGERS 1,000 ML IV SCH (08:23)
[2024-03-25] MEDS ORDERED: GLYCOPYRROLATE 0.2 MG/ML 2 ML VIAL ONE (08:24)
[2024-03-25] MEDS ORDERED: PROPOFOL 10 MG/ML 20 ML VIAL IV ONE (08:24)
--- NOTE | 2024-03-25 08:28 | P.GSHP ---
History of Present Illness H&P Date: 03/25/24 Chief Complaint: Screening colonoscopy Is a 63-year-old male who presents today for screening colonoscopy. Patient denies any significant GI complaints. Past Medical History Past Medical History: Hyperlipidemia, Hypertension, Osteoarthritis (OA) Additional Past Medical History / Comment(s): prediabetic History of Any Multi-Drug Resistant Organisms: None Reported Past Surgical History: Back Surgery, Hernia Repair, Orthopedic Surgery Additional Past Surgical History / Comment(s): LEFT KNEE ARTHROSCOPIC , LEFT KNEE ARTHROTOMY, prostate bx, RT SHOULDER SX, left shoulder sx COLONOSCOPY Past Anesthesia/Blood Transfusion Reactions: No Reported Reaction Smoking Status: Former smoker - Past Family History Father Family Medical History: Cancer Additional Family Medical History / Comment(s): bone Medications and Allergies Home Medications Medication Instructions Recorded Confirmed Type Pravastatin Sodium [Pravachol] 10 mg PO HS 04/08/17 03/25/24 History Ascorbic Acid [Vitamin C] 500 mg PO DAILY 10/08/19 03/25/24 History Losartan-Hctz 50-12.5 mg [Hyzaar 1 tab PO DAILY 06/12/22 03/25/24 History 50-12.5] Ibuprofen 600 mg PO Q8H PRN 03/23/24 03/25/24 History Sulfamethoxazole/Trimethoprim 1 each PO DIRECTED 03/23/24 03/25/24 History [Sulfamethoxazole/Trimethoprim DS Tablet] Allergies Allergy/AdvReac Type Severity Reaction Status Date / Time dog dander Allergy WATERY EYES Verified 03/25/24 08:06 Surgical - Exam Vital Signs Temp Pulse Resp BP Pulse Ox 97.2 F L 54 L 18 154/88 99 03/25/24 08:06 03/25/24 08:06 03/25/24 08:06 03/25/24 08:06 03/25/24 08:06 - General well developed, well nourished, no distress - Eyes PERRL - ENT normal pinna - Neck no masses - Respiratory normal expansion - Cardiovascular Rhythm: regular - Abdomen Abdomen: soft, non tender Assessment and Plan Assessment: Will perform screening colonoscopy.
--- NOTE | 2024-03-25 08:44 | P.OP ---
Date of Procedure: 03/25/24 Preoperative Diagnosis: Screening colonoscopy Postoperative Diagnosis: Diverticulosis Procedure(s) Performed: Colonoscopy Anesthesia: MAC Surgeon: Dmitriy Groves Pathology: none sent Condition: stable Disposition: PACU Description of Procedure: PROCEDURE: The patient was placed on the endoscopy table in the lateral position. Digital rectal examination was performed which revealed no abnormalities. The prostate was symmetrical without nodules. Flexible colonoscope was then placed in the patient's anus and passed throughout the entire colon. The ileocecal valve was visualized. In the right colon there was a few scattered diverticula. The scope was brought back and in the transverse colon there were few more diverticuli seen. In the descending and sigmoid colon there was mild diverticulosis. The scope was brought back to the rectum this appeared normal. Scope withdrawn the patient.
[2024-03-25 08:59] VITALS: RESP 16
[2024-03-25 09:00] VITALS: BP 119/80; PULSE 65
== END 2024-03-25 09:22 | disposition home or self-care (01) ==
LOC: ORWHC2ENDO 07:30
PROVIDERS: ATTEND Surgery
DX: Z12.11 Encounter for screening for malignant neoplasm of colon (principal); K57.30 Diverticulosis of large intestine without perforation or abscess without bleeding; I10 Essential (primary) hypertension; E78.5 Hyperlipidemia, unspecified; M19.90 Unspecified osteoarthritis, unspecified site; Z87.891 Personal history of nicotine dependence; Z98.890 Other specified postprocedural states; Z79.899 Other long term (current) drug therapy

== ENCOUNTER → 2024-08-16 | Outpatient (CLI) | payer MEDICARE | END | disposition home or self-care (01) | LOC: LABPAT 10:28 | PROVIDERS: ATTEND Orthopaedic Surgery | DX: M17.12 Unilateral primary osteoarthritis, left knee (principal); Z22.322 Carrier or suspected carrier of Methicillin resistant Staphylococcus aureus | CPT/HCPCS: 87070 ==

== ENCOUNTER 2024-09-20 08:15 | Day surgery (SDC) | payer MEDICARE ==
[~2024-09-20 08:15] MED LIST changes: -DEXAMETHASONE SOD PHOSPHATE 4 MG/ML 1 ML VIAL IV ONE; -HYDROmorphone 0.5 MG/0.5 ML SYRINGE IVP PRN; -MIDAZOLAM 2 MG/2 ML VIAL IV PRN; -ONDANSETRON 4 MG/2 ML VIAL IVP ONE; +TRANEXAMIC 1,000 MG/100ML-NACL 1,000 MG in SALINE 1 100ML.BAG IVPB PRN
--- NOTE | 2024-09-20 08:17 | HP ---
HISTORY AND PHYSICAL HISTORY OF PRESENT ILLNESS: Uzair Eisenberg is a 64-year-old gentleman seen with symptomatic left knee osteoarthritis. We discussed options regarding treatment. He elected to proceed with left total knee arthroplasty. Consents were obtained. Medical clearance was provided by Dr. Eugene Perez. PAST MEDICAL HISTORY: Ibe-zrihiej-tfhpueqih diabetes, hypertension. SURGICAL HISTORY: Spine surgery, knee arthroscopy. DAILY MEDICATIONS: 1. Hydrochlorothiazide. 2. Motrin. 3. Pravastatin. ALLERGIES: None reported. SOCIAL HISTORY: He denies tobacco use. PHYSICAL EVALUATION OF THE LEFT KNEE: His range of motion is negative 2/3 to 110 degrees. He has tenderness along the medial joint line, crepitus of medial patellofemoral compartments with range of motion, pain with patellofemoral compression. Ligaments stable. Hip rotation without pain. Distal neurovascular exam intact. RADIOGRAPHS: Left knee radiographs revealed severe osteoarthritic changes. IMPRESSION: 1. Left knee osteoarthritis. 2. Hypertension. 3. [id number]-upbtsfbar diabetes. PLAN: Left total knee arthroplasty. MMODL / IJN: [id number] /
[2024-09-20] MEDS: IV FLUID CONTINUATION 1,000 ML IV ONE ×3 (08:33→14:36)
[2024-09-20 08:44] VITALS: RESP 16
[2024-09-20] MEDS: MELOXICAM 7.5 MG TAB PO PRN (09:11)
[2024-09-20] MEDS: ACETAMINOPHEN TAB 500 MG TAB PO PRN (09:11)
[2024-09-20] MEDS: DEXAMETHASONE SOD PHOSPHATE 4 MG/ML 1 ML VIAL IV ONE (09:12)
[2024-09-20] MEDS: ONDANSETRON 4 MG/2 ML VIAL IVP ONE (09:12)
[2024-09-20] MEDS: MIDAZOLAM 2 MG/2 ML VIAL IVP ONE (09:29)
[2024-09-20] MEDS: fentaNYL (PF) 50 MCG/ML 2 ML AMP IVP ONE (09:29)
--- NOTE | 2024-09-20 10:03 | P.ANPRN ---
Procedure Note - Anesthesia - Nerve Block Performed Left Adductor Canal Infusion Time Out Performed: Yes (0928) Date of Procedure: 09/20/24 Procedure Start Time: : Procedure Stop Time: :34 Location of Patient: PreOp Indication: Acute Post-Operative Pain, Requested by Surgeon Specifically requested for management of pain by DrParveen: Jake Montoya Sedation Type: Sedate with meaningful contact maintained Preparation: Sterile Prep, Sterile Dressing Position: Supine Catheter Depth at Skin (cm): 8 Catheter: Indwelling Needle Types: Pajunk Needle Gauge: 18 Ultrasound used to visualize needle placement: Yes Ultrasound used to observe medication spread: Yes Injectate: 0.5% Ropivacaine (see comment for volume) (15cc+10cc nacl pf) Blood Aspirated: No Pain Paresthesia on Injection Noted: No Resistance on Injection: Normal Image Stored and Saved: Yes Events: Uneventful and Well Tolerated
--- NOTE | 2024-09-20 10:04 | P.ANPRN ---
Procedure Note - Anesthesia - Nerve Block Performed Left iPack Single Time Out Performed: Yes (0928) Date of Procedure: 09/20/24 Procedure Start Time: 09:35 Procedure Stop Time: 09:39 Location of Patient: PreOp Indication: Acute Post-Operative Pain, Requested by Surgeon Specifically requested for management of pain by DrParveen: Jake Montoya Sedation Type: Sedate with meaningful contact maintained Preparation: Sterile Prep Position: Supine Catheter: None Needle Types: Pajunk Needle Gauge: 21 Ultrasound used to visualize needle placement: Yes Ultrasound used to observe medication spread: Yes Injectate: 0.5% Ropivacaine (see comment for volume) (15cc+10cc nacl pf) Blood Aspirated: No Pain Paresthesia on Injection Noted: No Resistance on Injection: Normal Image Stored and Saved: Yes Events: Uneventful and Well Tolerated
[2024-09-20] MEDS ORDERED: PROPOFOL 10 MG/ML 20 ML VIAL IV ONE (10:16)
[2024-09-20] MEDS ORDERED: LIDOCAINE 1% INJ 10MG/ML (20 ML MDV) ONE (10:16)
[2024-09-20] MEDS ORDERED: DEXAMETHASONE SOD PHOSPHATE 4 MG/ML 1 ML VIAL ONE (10:16)
[2024-09-20] MEDS ORDERED: HYDROmorphone (PF) 1 MG/ML ONE (10:16)
[2024-09-20] MEDS ORDERED: SUCCINYLCHOLINE CHLORIDE 200 MG/10 ML VIAL IV ONE (10:16)
[2024-09-20] MEDS ORDERED: GLYCOPYRROLATE 0.2 MG/ML 2 ML VIAL ONE (10:16)
[2024-09-20] MEDS ORDERED: fentaNYL (PF) 50 MCG/ML 2 ML AMP ONE (10:16)
[2024-09-20] MEDS ORDERED: MIDAZOLAM 2 MG/2 ML VIAL ONE (10:16)
[2024-09-20] MEDS ORDERED: ROPIVACAINE 5 MG/ML 30 ML VIAL ONE (10:16)
[2024-09-20] MEDS: ceFAZolin 1,000 MG in SODIUM CHLORIDE 0.9% 1,000 ML IRRIGATION ONE (10:48)
[2024-09-20] MEDS: LACTATED RINGERS 1,000 ML IV ONE (11:15)
[2024-09-20] MEDS ORDERED: ONDANSETRON 4 MG/2 ML VIAL IVP PRN (12:27)
[2024-09-20] MEDS ORDERED: HYDROcodone/APAP 7.5-325MG 1 EACH TAB PO PRN (12:27)
[2024-09-20] MEDS ORDERED: NALOXONE 0.4 MG/ML 1 ML VIAL IV PRN (12:27)
[2024-09-20] MEDS ORDERED: HYDROmorphone 0.5 MG/0.5 ML SYRINGE IVP PRN ×3 (12:27)
[2024-09-20] MEDS ORDERED: LACTATED RINGERS 1,000 ML IV ONE (12:27)
--- NOTE | 2024-09-20 12:27 | P.OP ---
Date of Procedure: 09/20/24 Preoperative Diagnosis: Left knee osteoarthritis Postoperative Diagnosis: Left knee osteoarthritis Procedure(s) Performed: Left total knee arthroplasty Implants: 1. DePuy attune size 7 left cruciate retaining cemented femur 2. DePuy attune size 7 fixed-bearing cemented tibial baseplate 3. DePuy attune size 7 fixed-bearing cruciate retaining 7 mm polyethylene tibial insert 4. DePuy attune 38 mm all polyethylene cemented patella 5. 1Arthrex 4.75 swivel lock anchor Anesthesia: GETA, regional (Adductor canal catheter, iPAQ block) Surgeon: Jake Montoya Client Professional #1: Partha Alicea Estimated Blood Loss (ml): 45 Pathology: none sent Condition: stable Disposition: PACU Indications for Procedure: 64-year-old patient seen with symptomatic left knee osteoarthritis. After having treatment options discussed, he elected to proceed with total knee arthroplasty. Operative Findings: See description of procedure Description of Procedure: Patient was taken to the operative suite after having an adductor canal catheter placed by the department of anesthesia. Patient underwent a general anesthetic by the department of anesthesia. Patient was given preoperative IV intake antibiotics and TXA. A well-padded tourniquet was placed about the left lower extremity. The lower extremity was then prepped and draped in the normal sterile orthopedic fashion. The extremity was elevated, a tourniquet was insufflated to 300. A standard anterior incision was made sharply through skin. Dissection was taken down through the subcutaneous soft tissues down to the extensor mechanism. A medial arthrotomy was performed, patella was everted and knee was flexed. There was advanced osteoarthritis noted. I introduced my distal intramedullary femoral drill. I then introduced the distal femoral cutting jig. Porter HUNTER secured the cutting jig with 2 pins. I held retractors in position while Porter HUNTER performed the distal femoral resection through the guide area we now removed her distal femoral cutting guide. We now placed our 4-in-1 femoral cutting block and positioned and it was secured with 2 pins by Porter HUNTER while I held the block in position. The distal femoral finishing was now completed. A proximal tibial cutting guide was positioned. I held the guide in the appropriate position with both hands well Porter HUNTER inserted stabilizing pins into the guide. Proximal tibial cut was made. We now placed a trial femoral component into position, along with an appropriate size tibial tray and insert. We now took the knee through range of motion and had full extension good flexion and good overall soft tissue balance noted. The patella was everted and stabilized with 2 towel clips held by Porter HUNTER while I performed a flush with patellar quad tendon utilizing a fresh sawblade. We templated the patella, appropriate drill holes were made. An appropriate trial patella was positioned, knee was taken through full range of motion with the patella tracking very nicely. The trial patella was removed. Drill holes were made through the femoral component. All trial components were removed after marking off the appropriate rotation of the tibia. Retractors were now positioned along the proximal tibia. An appropriate keel punch was made with the appropriate size tibial guide by myself on Porter HUNTER assisted by holding retractors. At this point appropriate size implants were chosen and opened. The joint was irrigated copiously with pulse lavage mechanical irrigation. The wound was irrigated with pulse lavage mechanical irrigation. We mixed antibiotic methylmethacrylate. We placed the knee into flexion. We placed multiple retractors assisted by Porter HUNTER to expose the proximal tibia. Once the methyl methacrylate was ready, the tibial component was cemented into place removing any excess methylmethacrylate form by both myself and Porter HUNTER. The femoral component was cemented into place removing the removing any excess methylmethacrylate performed by both myself and Porter HUNTER. We then inserted the appropriate size polyethylene tibial insert. We made sure that it was locked into position. We took the knee into full extension, and then back in a flexion making sure we had removed any excess methylmethacrylate. The patellar component was then cemented down and secured with clamp. Excess methylmethacrylate removed. We kept the knee in full extension, patellar clamp in position until methylmethacrylate had hardened. Once it had hardened the patellar clamp was removed. The knee was taken through full range of motion. The patella tracked nicely. There was good soft tissue balancing. The tourniquet was now released. Additional hemostasis was achieved via electrocautery. A second gram of TXA was given. The wound again was irrigated with pulse lavage mechanical irrigation. The extensor mechanism was repaired with Ethibond suture. I did note that there was some tearing of the lateral patellar tendon off the tibia distally. I introduced a Arthrex 4.75 swivel lock anchor to augment the tendon repair distally. I then sewed down the tendon right back to the bone with the FiberWire suture. We checked the repair with range of motion and it was stable. The subcutaneous soft tissues were repaired with Vicryl in layers. The skin was approximated with pernio/ Dermabond. Sterile dressings were applied followed by loose web roll and Wang bandage. The patient was transferred to a bed, and taken to recovery in stable and satisfactory condition. Porter HUNTER assisted with this complex procedure.
[2024-09-20 12:56] VITALS: TEMP 96.8
[2024-09-20] MEDS: HYDROmorphone 0.5 MG/0.5 ML SYRINGE IVP PRN (13:09)
[2024-09-20] MEDS: ROPIVACAINE 1,100 MG, SODIUM CHLORIDE 0.9% 500 ML 330 ML, EMPTY PAIN BALL 1 EACH MISCELLANE PRN (13:14)
--- NOTE | 2024-09-20 13:15 | XR ---
EXAMINATION TYPE: XR knee limited LT DATE OF EXAM: 09/20/2024 CLINICAL HISTORY: Postoperative evaluation Two views of the left knee are submitted. Identified are changes of total knee arthroplasty with fem oral and tibial components appearing well seated. Postsurgical soft tissue changes are noted. Align ment is anatomic. [facility], , 09/20/2024 1:12 PM
[2024-09-20] MEDS: hydrALAZINE HCL 20 MG/ML 1 ML VIAL IVP STA (14:24)
[2024-09-20] MEDS: HYDROcodone/APAP 5-325MG 1 EACH TAB PO PRN (15:18)
[2024-09-20 15:39] VITALS: BP 138/78; PULSE 78
== END 2024-09-20 16:42 | disposition home health service (06) ==
LOC: OR 08:15
PROVIDERS: ATTEND Orthopaedic Surgery
DX: M17.12 Unilateral primary osteoarthritis, left knee (principal); G89.18 Other acute postprocedural pain; E11.9 Type 2 diabetes mellitus without complications; I10 Essential (primary) hypertension; Z96.652 Presence of left artificial knee joint
CPT/HCPCS: 27447; 97530; 97161; 64999; 64448; 73560; C1713 ×3; C1776; C1751; J2250; J0330; J0360; J1100; J0690 ×2; J2405; J2003; J3010; J1171 ×2; J2795; J2704; J1596